=== PATIENT | female | born 1940 | race African-American/Black ===

== ENCOUNTER 2022-01-29 10:29 | Outpatient (CLI) | payer OTHER ==
[~2022-01-29 10:29] MED LIST: ATORVASTATIN CA40 MG; AVAPRO 300MG; DILTIAZEM 240 MG; HYDROCHLOROTHIAZIDE; METFORMIN 500MG; NORVASC10 MG; ORPH100T PO; PROTONIX40 MG PO; TOPROL XL25 M1; ULTRACET PO; ZANTAC300 MG PO
== END 2022-01-29 10:32 | disposition home or self-care (01) ==
LOC: NUCLEAR 10:29
PROVIDERS: ATTEND General Practice
DX: M81.0 Age-related osteoporosis without current pathological fracture (principal); Z13.820 Encounter for screening for osteoporosis; Z88.8 Allergy status to other drugs, medicaments and biological substances; Z88.6 Allergy status to analgesic agent